=== PATIENT | female | born 1940 | race Caucasian/White ===

== ENCOUNTER 2016-11-27 09:06 | Inpatient (IN) | payer MEDICARE, OTHER ==
[~2016-11-27] VITALS: Ht 152.4 cm; Wt 78.9 kg
[2016-11-27] VITALS (667 sets, daily range): BP systolic 110–115; BP diastolic 53–87; PULSE 94–123; TEMP 97.8–98.7; O2SAT 82–100
[~2016-11-27 09:06] MED LIST: ALBUTEROL0.09 MG/A1 IH; ALPHAG-P-0.1-10 OS; ALPHAGAN OP; ASPIR-LOW81 MG PO; ASPIRIN 81M81 MG/TA2 PO; ATROVENT INHALE14 GM IH; AZMACORT IH; CARTIA XT120 MG PO; CITRUS CALCIUM1 TA1 PO; CLARITIN; CLARITIN 1010 MG/TAB PO; CLEOCIN HCL300 MG PO; FLONASE NASAL S16 GM NS; FLOVENT 220MCG7.9 GM IH; LISINOPRIL/HCTZ1 TAB PO; LOPRESSOR 225 MG/TAB PO; MULTIPLE VITAMI1 TA7 PO; MVI; OSCAL 500MG/VI500 MG PO; PRINZIDE 12.5 M1 TAB PO; PROTOPIC0.03% TP; PROVENTIL0.09 MG/A1 IH; THEO-DUR 3300 MG/TAB PO; THEODUR 300MG PO; TRAMADOL; TRUSOPT 5 ML5 ML OS; ULTRAM 50MG TAB50 MG PO; VICOPROFEN 7.51 TAB PO; XALATAN EYE DROPS OS; ZANTAC 150150 MG PO; ZANTAC 150MG T150 MG PO; [UNRECOGNIZED DRUG - OTHER]; [UNRECOGNIZED DRUG - OTHER] IH; [UNRECOGNIZED DRUG - OTHER] IH; [UNRECOGNIZED DRUG - OTHER] OS
[2016-11-27 09:36] LABS: BASO # 0.1 (0.0-0.2); BASO % 0.3 % (0.0-2.0); GRAN # 17.7 (1.4-6.5); GRAN % 86.7 % (42.2-75.2); HEMATOCRIT 42.7 % (37.0-47.0); HEMOGLOBIN 13.9 g/dl (12.5-16.0); LYMPH # 1.2 (1.2-3.4); LYMPH % 5.7 % (20.0-51.0); MEAN CELL VOLUME 92 fl (80.0-100.0); MEAN CORPUSCULAR HEMOGLOBIN 30 pg (27.0-31.0); MEAN CORPUSCULAR HGB CONC 33 g/dl (33.0-37.0); MEAN PLATELET VOLUME 10.4 fl (7.4-10.4); MONO # 1.4 (0.1-0.6); MONO % 6.9 % (1.7-9.3); PLATELET COUNT 268 K/mm3 (130-400); RED BLOOD COUNT 4.66 M/mm3 (4.10-5.30)
[2016-11-27 09:38] LABS: WHITE BLOOD COUNT 20.5 K/mm3 (4.8-10.8)
[2016-11-27 09:47] LABS: ADJUSTED CALCIUM 10.2 mg/dL (8.4-10.2); ALANINE AMINOTRANSFERASE 29 U/L (9-52); ALBUMIN 4.5 gm/dL (3.5-5.0); ALKALINE PHOSPHATASE 65 U/L (50-136); ANION GAP 15 mmol/L (7-16); BLOOD UREA NITROGEN 20 mg/dL (7-17); CALCIUM 10.6 mg/dL (8.4-10.2); CARBON DIOXIDE 27 mmol/L (22-30); CHLORIDE 101 mmol/L (98-107); CREATININE, serum 0.72 mg/dL (0.52-1.25); GLUCOSE 128 mg/dL (74-106); LIPASE 124 U/L (23-300); POTASSIUM 3.9 mmol/L (3.4-5.0); SODIUM 143 mmol/L (137-145); TOTAL PROTEIN 8.1 gm/dL (6.4-8.2)
[2016-11-27 09:51] LABS: INR 1.1 (0.8-3.0); PROTHROMBIN TIME 12.3 SECONDS (9.7-12.8)
[2016-11-27 09:54] LABS: PARTIAL THROMBOPLASTIN TIME 33.2 SECONDS (26.0-37.0)
[2016-11-27 09:59] LABS: B-TYPE NATRIURETIC PEPTIDE 487 pg/mL (0-125)
[2016-11-27 10:01] LABS: TROPONIN-I < 0.012 ng/mL (0.000-0.034)
[2016-11-27 10:59] LABS: PH 7 (5-8); SQUAMOUS EPITHELIAL 0-2 /hpf; URINE APPEARANCE Clear; URINE BACTERIA Rare /hpf; URINE BILIRUBIN Negative (NEGATIVE); URINE BLOOD 2+ (NEGATIVE); URINE COLOR Straw; URINE GLUCOSE Negative (NEGATIVE); URINE KETONE Negative (NEGATIVE); URINE UROBILINOGEN Negative (NEGATIVE); URINE WBC 0-2 /hpf
[2016-11-27] MEDS ORDERED: CARTIA XT120 MG PO (11:05)
[2016-11-27] MEDS ORDERED: TUMS500 MG PO (11:09)
[2016-11-27] MEDS ORDERED: ONE DAILY1 TA1 PO (11:18)
[2016-11-27] MEDS ORDERED: TRUSOPT OCUMETE10 ML OS (12:30)
[2016-11-27 13:57] LABS: BASO % 0.2 % (0.0-2.0); EOS % 0.1 % (0-4.0); GRAN # 13.3 (1.4-6.5); GRAN % 80.1 % (42.2-75.2); HEMATOCRIT 39.5 % (37.0-47.0); HEMOGLOBIN 12.7 g/dl (12.5-16.0); LYMPH # 1.8 (1.2-3.4); LYMPH % 11.1 % (20.0-51.0); MEAN CELL VOLUME 92 fl (80.0-100.0); MEAN CORPUSCULAR HEMOGLOBIN 30 pg (27.0-31.0); MEAN CORPUSCULAR HGB CONC 32 g/dl (33.0-37.0); MEAN PLATELET VOLUME 10.6 fl (7.4-10.4); MONO # 1.3 (0.1-0.6); MONO % 8.1 % (1.7-9.3); PLATELET COUNT 266 K/mm3 (130-400); REDCELL DISTRIBUTION WIDTH-CV 14.2 % (11.5-14.5); WHITE BLOOD COUNT 16.6 K/mm3 (4.8-10.8)
[2016-11-28] VITALS (759 sets, daily range): BP systolic 96–134; BP diastolic 53–92; PULSE 74–132; TEMP 97.8–98.7; O2SAT 82–100
[2016-11-29 02:29] VITALS: BP 120/66; PULSE 117; TEMP 98.2
[2016-11-29 07:46] VITALS: BP 113/68; PULSE 112
[2016-11-29 12:11] VITALS: BP 124/87; PULSE 100
[2016-11-29 15:56] VITALS: BP 107/55; PULSE 89
[2016-11-29 19:38] VITALS: BP 118/42; PULSE 64; TEMP 98.2
[2016-11-29 23:34] VITALS: BP 112/52; PULSE 66; TEMP 98.2
[2016-11-30 04:20] VITALS: BP 109/59; PULSE 74; TEMP 98.9
[2016-11-30 08:24] VITALS: BP 122/54; PULSE 80; TEMP 98.2
[2016-11-30 11:40] VITALS: BP 111/49; PULSE 59; TEMP 96.9
[2016-11-30 11:41] LABS: BASO % 0.3 % (0.0-2.0); EOS # 0.3 (0.0-0.7); EOS % 3.2 % (0-4.0); GRAN # 6.1 (1.4-6.5); GRAN % 69.2 % (42.2-75.2); LYMPH # 1.5 (1.2-3.4); LYMPH % 17.1 % (20.0-51.0); MEAN CELL VOLUME 95 fl (80.0-100.0); MEAN CORPUSCULAR HGB CONC 31 g/dl (33.0-37.0); MEAN PLATELET VOLUME 10.5 fl (7.4-10.4); MONO # 0.9 (0.1-0.6); MONO % 9.9 % (1.7-9.3); PLATELET COUNT 225 K/mm3 (130-400); REDCELL DISTRIBUTION WIDTH-CV 14.6 % (11.5-14.5); WHITE BLOOD COUNT 8.8 K/mm3 (4.8-10.8)
[2016-11-30 11:42] LABS: HEMATOCRIT 34.1 % (37.0-47.0); HEMOGLOBIN 10.7 g/dl (12.5-16.0); MEAN CORPUSCULAR HEMOGLOBIN 30 pg (27.0-31.0)
[2016-11-30] MEDS ORDERED: BETAPACE 80MG80 MG PO (13:01)
[2016-11-30] MEDS ORDERED: ELIQUIS 5MG PO (13:01)
== END 2016-11-30 13:39 | disposition home or self-care (01) | DRG 310 ==
LOC: COL.ER 09:06 → IMCU 10:28 → MEDICAL 11-28 16:50
PROVIDERS: Emergency Medicine
PROC: 5A2204Z Restoration of Cardiac Rhythm, Single (ICD-10-PCS; principal; 2016-11-28)
DX: I48.0 Paroxysmal atrial fibrillation (principal); I10 Essential (primary) hypertension; J44.9 Chronic obstructive pulmonary disease, unspecified
CPT/HCPCS: 99232-AI; 99238; A9502; J1650; J2250; J2704; J3010; J7030; J7050

== ENCOUNTER → 2017-06-02 | Outpatient (CLI) | payer MEDICARE, OTHER ==
[~2017-06-02] MED LIST changes: +BETAPACE 80MG80 MG PO; +ELIQUIS 5MG PO; +ONE DAILY1 TA1 PO; +TRUSOPT OCUMETE10 ML OS; +TUMS500 MG PO
== END ==
LOC: MC.RAD 08:20
DX: Z12.31 Encounter for screening mammogram for malignant neoplasm of breast (principal)

== ENCOUNTER 2017-06-15 07:10 | Inpatient (IN) | payer MEDICARE, OTHER ==
[2009-03-21 16:17] VITALS: BP 169/86
[2017-06-15] VITALS (10 sets, daily range): BP systolic 110–164; BP diastolic 41–53; PULSE 45–70; TEMP 97.6–97.8
[2017-06-15] MEDS ORDERED: CITRACAL + D CA1 TAB PO (08:28)
[2017-06-15] MEDS ORDERED: FLONASEALLERGY NS (08:36)
[2017-06-15] MEDS ORDERED: BETOPTIC S OU (08:37)
[2017-06-15] MEDS ORDERED: XOPENEX HF0.045 MG/A IH (08:39)
[2017-06-16 02:00] VITALS: BP 118/45; PULSE 68; TEMP 98.2
[2017-06-16 05:52] VITALS: BP 126/38; PULSE 73; TEMP 97.3
[2017-06-16] MEDS ORDERED: COLACE 100100 MG/CAP PO (08:35)
== END 2017-06-16 10:30 | disposition home or self-care (01) | DRG 747 ==
LOC: SDCO 07:10 → SURG 11:17
PROVIDERS: Obstetrics & Gynecology
PROC: 0WBN0ZZ Excision of Female Perineum, Open Approach (ICD-10-PCS; 2017-06-15)
PROC: 0ULG7ZZ Occlusion of Vagina, Via Natural or Artificial Opening (ICD-10-PCS; principal; 2017-06-15 09:00)
DX: N81.3 Complete uterovaginal prolapse (principal); I10 Essential (primary) hypertension; J44.9 Chronic obstructive pulmonary disease, unspecified; I48.91 Unspecified atrial fibrillation
CPT/HCPCS: A9284; J2405; J2704; J3010; J7120

== ENCOUNTER → 2018-06-21 | Outpatient (CLI) | payer MEDICARE, OTHER ==
[~2018-06-21] MED LIST changes: +BETOPTIC S OU; +CITRACAL + D CA1 TAB PO; +COLACE 100100 MG/CAP PO; +FLONASEALLERGY NS; +XOPENEX HF0.045 MG/A IH
== END ==
LOC: MC.RAD 08:00
DX: Z12.31 Encounter for screening mammogram for malignant neoplasm of breast (principal)

== ENCOUNTER → 2019-08-09 | Outpatient (CLI) | payer MEDICARE, OTHER | LOC: MC.RAD 15:20 | DX: Z12.31 Encounter for screening mammogram for malignant neoplasm of breast (principal) ==

== ENCOUNTER 2019-09-21 13:08 | Observation (INO) | payer MEDICARE, OTHER ==
[~2019-09-21] VITALS: Ht 162.6 cm; Wt 78.6 kg
--- NOTE | 2019-09-21 13:30 | NUR ---
Pt arrived to room 306 at this time. She is A/O x4. Her breathing is even and unlabored on RA. Pt denies SOB at rest, reports worsening with exertion. No pain at this time. Pt assisted to the bed with SBA. IV started to RFA. POC discussed with patient and her daughter. No needs at this time. Call light within reach. Will continue to monitor.
[2019-09-21] MEDS ORDERED: ZYLOPRIM 300MG300 MG PO (13:33)
[2019-09-21 15:23] VITALS: BP 98/46; PULSE 76; TEMP 98.7
[2019-09-21 15:23] LABS: HEMATOCRIT 41.8 % (37.0-47.0); HEMOGLOBIN 13.3 g/dl (12.5-16.0); MEAN CELL VOLUME 94 fl (80.0-100.0); MEAN CORPUSCULAR HEMOGLOBIN 30 pg (27.0-31.0); MEAN CORPUSCULAR HGB CONC 32 g/dl (33.0-37.0); MEAN PLATELET VOLUME 10.7 fl (7.4-10.4); PLATELET COUNT 245 K/mm3 (130-400); RED BLOOD COUNT 4.44 M/mm3 (4.10-5.30); REDCELL DISTRIBUTION WIDTH-CV 14.1 % (11.5-14.5)
[2019-09-21 15:26] VITALS: BP 98/46; PULSE 76; TEMP 98.7
[2019-09-21 15:29] LABS: ALANINE AMINOTRANSFERASE 19 U/L (9-52); ALBUMIN 4.3 gm/dL (3.5-5.0); ALKALINE PHOSPHATASE 57 U/L (50-136); ANION GAP 10 mmol/L (7-16); AST,SGOT 22 U/L (15-37); BILIRUBIN,TOTAL 0.8 mg/dL (0.0-1.0); BLOOD UREA NITROGEN 17 mg/dL (7-17); CALCIUM 9.4 mg/dL (8.4-10.2); CARBON DIOXIDE 29 mmol/L (22-30); CHLORIDE 98 mmol/L (98-107); CREATININE, serum 0.76 (0.52-1.25); GLUCOSE 108 mg/dL (74-106); POTASSIUM 3.5 mmol/L (3.4-5.0); SODIUM 137 mmol/L (137-145); TOTAL PROTEIN 7.6 gm/dL (6.4-8.2)
[2019-09-21 15:41] LABS: BAND 2 % (0-10); LYMPHOCYTE 12 % (20.0-51.0); NEUTROPHILS 80 % (42.0-75.2); PLATELET ESTIMATE NORMAL (NORMAL); STOMATOCYTE 3+
[2019-09-21 15:46] LABS: TROPONIN-I < 0.012 ng/mL (0.000-0.035)
[2019-09-21 16:20] LABS: COLLECTION METHOD CLEAN CATCH
[2019-09-21 16:28] LABS: MUCOUS Present /lpf; PH 6 (5-8); SQUAMOUS EPITHELIAL 0-2 /hpf; URINE APPEARANCE Clear; URINE BACTERIA Rare /hpf; URINE BILIRUBIN Negative (NEGATIVE); URINE BLOOD 3+ (NEGATIVE); URINE COLOR Yellow; URINE GLUCOSE Negative (NEGATIVE); URINE KETONE Negative (NEGATIVE); URINE LEUKOCYTE ESTERASE Negative (NEGATIVE); URINE NITRATE Negative (NEGATIVE); URINE PROTEIN(semi-quant) Negative (NEGATIVE); URINE UROBILINOGEN Negative (NEGATIVE)
--- NOTE | 2019-09-21 18:36 | NUR ---
Pt had uneventful afternoon, rested well in bed with daughter at bedside. No pain reported. Breathing remains even and unlabored on RA. Pt and daughter updated with POC. No needs at this time.
[2019-09-21 20:00] VITALS: BP 91/38; PULSE 64; TEMP 99.4
--- NOTE | 2019-09-21 20:00 | NUR ---
Recieved report from CLAUDIA Finn. Assessment complete. Alert and oriented. Denies any nausea, dizziness, SOB. C/O chest pressure, rate2/10, tolerable.IVF to RF intact, dressing cdi. Assisted to BR. Meds administered as ordered. Needs met. Call light within reach.
[2019-09-22] VITALS: BP 109/48; PULSE 72; TEMP 98.4
[2019-09-22 03:49] VITALS: BP 101/54; PULSE 77; TEMP 99.1
--- NOTE | 2019-09-22 05:28 | NUR ---
Pt made no complaints during this shift. Meds administered as ordered. Assisted pt to BR. Call light within reach.
[2019-09-22 06:48] LABS: BASO % 0.4 % (0.0-2.0); EOS # 0.1 (0.0-0.7); EOS % 0.6 % (0-4.0); GRAN # 6.2 (1.4-6.5); GRAN % 61.1 % (42.2-75.2); HEMATOCRIT 38.4 % (37.0-47.0); LYMPH # 2.4 (1.2-3.4); LYMPH % 23.4 % (20.0-51.0); MEAN CELL VOLUME 95 fl (80.0-100.0); MEAN CORPUSCULAR HEMOGLOBIN 30 pg (27.0-31.0); MEAN CORPUSCULAR HGB CONC 31 g/dl (33.0-37.0); MEAN PLATELET VOLUME 10.8 fl (7.4-10.4); MONO # 1.4 (0.1-0.6); MONO % 14.1 % (1.7-9.3); PLATELET COUNT 231 K/mm3 (130-400); RED BLOOD COUNT 4.04 M/mm3 (4.10-5.30); REDCELL DISTRIBUTION WIDTH-CV 14.3 % (11.5-14.5)
--- NOTE | 2019-09-22 06:51 | NUR ---
Report given to CLAUDIA Finn.
[2019-09-22 07:04] LABS: ANION GAP 9 mmol/L (7-16); BLOOD UREA NITROGEN 17 mg/dL (7-17); CALCIUM 8.9 mg/dL (8.4-10.2); CARBON DIOXIDE 28 mmol/L (22-30); CHLORIDE 103 mmol/L (98-107); CREATININE, serum 0.78 (0.52-1.25); GLUCOSE 89 mg/dL (74-106); POTASSIUM 3.2 mmol/L (3.4-5.0); SODIUM 140 mmol/L (137-145)
[2019-09-22 07:14] LABS: TROPONIN-I < 0.012 ng/mL (0.000-0.035)
[2019-09-22 07:58] VITALS: BP 107/58; PULSE 53; TEMP 99.2
--- NOTE | 2019-09-22 08:39 | NUR ---
Pt assessment complete. Pt is sitting up in bed upon entry, she is A/O x4. Her breathing is even and unlabored at rest on RA, becomes tachypneic and SOB on exertion. Pt reports the tightness in chest is improved from yesterday. No other pain to report. No N/V. Up to restroom with SBA. Daughter at bedside at this time, no further needs. Call light within reach.
[2019-09-22] MEDS ORDERED: DOXYCYCLINE 10100 MG PO (09:38)
--- NOTE | 2019-09-22 09:50 | NUR ---
GERRI met with the patient and her daughter, Antoinette (ph#[phone]), to discuss discharge plan. The patient lives in [place] with her daughter (Antoinette), son-in-law, and grandson. She reports independence with ADLs and has a cane and walker available, if needed. The patient's PCP is Dr. J Luis Perkins and she receives her medications at [facility]. She reports no difficulties obtaining her meds. The patient does not have advanced directives in EMR, but her and the patient's daughter report that she does have them completed and at home. Antoinette states that her sister's: Radha Rico (ph#[phone]) and Christin Caldwell are the patient's DPOA-HC. The patient plans to return home with her daughter upon discharge. No additional needs at this time.
[2019-09-22 11:15] VITALS: BP 108/69; PULSE 68; TEMP 97.7
--- NOTE | 2019-09-22 11:49 | NUR ---
First visit from the pelletizer tender. No needs right now.
--- NOTE | 2019-09-22 11:54 | NUR ---
Discharge instructions and paperwork reviewed with patient and her daughter all questions answered at this time. IV to RFA dc'd catheter tip intact. No Walked out at this time.
== END 2019-09-22 12:08 | disposition home or self-care (01) ==
LOC: MEDICAL 13:08
PROVIDERS: Physician Assistant; ADMIT Hospitalist
DX: R07.9 Chest pain, unspecified (principal); D72.829 Elevated white blood cell count, unspecified; J44.9 Chronic obstructive pulmonary disease, unspecified; I10 Essential (primary) hypertension; E87.6 Hypokalemia; R53.1 Weakness; K21.9 Gastro-esophageal reflux disease without esophagitis; J30.89 Other allergic rhinitis; I48.0 Paroxysmal atrial fibrillation; J42 Unspecified chronic bronchitis; E66.9 Obesity, unspecified; Z68.35 Body mass index [BMI] 35.0-35.9, adult; Z91.048 Other nonmedicinal substance allergy status; Z88.0 Allergy status to penicillin; Z88.2 Allergy status to sulfonamides; Z88.1 Allergy status to other antibiotic agents; Z88.6 Allergy status to analgesic agent; Z88.5 Allergy status to narcotic agent; Z88.3 Allergy status to other anti-infective agents; Z91.040 Latex allergy status; Z91.012 Allergy to eggs; Z88.8 Allergy status to other drugs, medicaments and biological substances; Z79.01 Long term (current) use of anticoagulants; Z77.22 Contact with and (suspected) exposure to environmental tobacco smoke (acute) (chronic); Z79.51 Long term (current) use of inhaled steroids
CPT/HCPCS: G0378; J7030

== ENCOUNTER 2020-01-16 20:59 | Inpatient (IN) | payer MEDICARE, OTHER ==
[~2020-01-16] VITALS: Ht 152.4 cm; Wt 82.7 kg
[~2020-01-16 20:59] MED LIST changes: +DOXYCYCLINE 10100 MG PO; +ZYLOPRIM 300MG300 MG PO
[2020-01-16 22:10] LABS: BASO # 0.1 (0.0-0.2); BASO % 0.6 % (0.0-2.0); EOS # 0.4 (0.0-0.7); EOS % 3.2 % (0-4.0); GRAN # 6.8 (1.4-6.5); GRAN % 62.1 % (42.2-75.2); HEMATOCRIT 40.5 % (37.0-47.0); HEMOGLOBIN 12.7 g/dl (12.5-16.0); LYMPH # 2.6 (1.2-3.4); LYMPH % 23.6 % (20.0-51.0); MEAN CELL VOLUME 95 fl (80.0-100.0); MEAN CORPUSCULAR HEMOGLOBIN 30 pg (27.0-31.0); MEAN CORPUSCULAR HGB CONC 31 g/dl (33.0-37.0); MEAN PLATELET VOLUME 10.2 fl (7.4-10.4); MONO # 1.1 (0.1-0.6); MONO % 10.1 % (1.7-9.3); PLATELET COUNT 235 K/mm3 (130-400); RED BLOOD COUNT 4.25 M/mm3 (4.10-5.30); REDCELL DISTRIBUTION WIDTH-CV 14.1 % (11.5-14.5)
[2020-01-16 22:21] LABS: ALANINE AMINOTRANSFERASE 16 U/L (4-34); ALBUMIN 4.2 gm/dL (3.5-5.0); ALKALINE PHOSPHATASE 60 U/L (50-136); ANION GAP 10 mmol/L (7-16); AST,SGOT 24 U/L (15-37); BILIRUBIN,TOTAL 0.4 mg/dL (0.0-1.0); BLOOD UREA NITROGEN 22 mg/dL (7-17); CALCIUM 9.6 mg/dL (8.4-10.2); CARBON DIOXIDE 29 mmol/L (22-30); CHLORIDE 101 mmol/L (98-107); CREATININE, serum 0.54 (0.52-1.25); GLUCOSE 125 mg/dL (74-106); POTASSIUM 3.7 mmol/L (3.4-5.0); SODIUM 139 mmol/L (137-145); TOTAL PROTEIN 7.5 gm/dL (6.4-8.2)
[2020-01-16 23:46] LABS: TROPONIN-I < 0.012 ng/mL (0.000-0.035)
[2020-01-17] VITALS (473 sets, daily range): BP systolic 97–119; BP diastolic 53–69; PULSE 71–140; TEMP 97.6–98.1; O2SAT 89–100
--- NOTE | 2020-01-17 00:07 | NUR ---
RECEIVED REPORT FROM CLAUDIA BENEDICT IN ER. AWAITING ARRIVAL OF PT TO ICU 5.
--- NOTE | 2020-01-17 01:04 | NUR ---
PT ARRIVES TO ICU 5 VIA STRETCHER ON RA. PT ABLE TO AMBULATE TO ICU BED BY SELF, STEADY GAIT NOTED. PT PLACED ON BEDSIDE CONTINUOUS MONITOR. CALL LIGHT SYSTEM EDUCATION GIVEN, VERBALIZED UNDERSTANDING. SEE GTT TITRATION FLOWSHEET.
--- NOTE | 2020-01-17 01:45 | NUR ---
[facility] NOTIFIED NURSE PT IS BACK IN SR IN THE 70s. SAV MCCOY AT BEDSIDE FOR ASSESSMENT AND NOTIFIED PT CONVERTED TO SR. PHYSICIAN STATES OK TO LET PT EAT LONG SHE STAYS IN NORMAL SINUS [place]TH[place] AND IS OK TO CALL ICE CUTTER CONSULT IN AM. PT ABLE TO TELL PHYSICIAN ALL BACK STORY OF WHY SHE CAME TO THE HOSPITAL. PHYSICIAN STATES TO LEAVE CARDIZEM GTT ON AT THIS TIME LONG BP REMAINS STABLE. POC DISCUSSED WITH PT, VERBALIZED UNDERSTANDING.
[2020-01-17] MEDS ORDERED: ATROVENT INHALE14 GM IH (01:59)
[2020-01-17] MEDS ORDERED: PRINZIDE 12.5 M1 TAB PO (02:11)
[2020-01-17 03:44] LABS: COLLECTION METHOD CLEAN CATCH
[2020-01-17 04:00] LABS: MUCOUS Present /lpf; PH 6 (5-8); SQUAMOUS EPITHELIAL 0-2 /hpf; URINE APPEARANCE Clear; URINE BACTERIA None Seen /hpf; URINE BILIRUBIN Negative (NEGATIVE); URINE BLOOD 2+ (NEGATIVE); URINE COLOR Straw; URINE GLUCOSE Negative (NEGATIVE); URINE KETONE Negative (NEGATIVE); URINE LEUKOCYTE ESTERASE Negative (NEGATIVE); URINE NITRATE Negative (NEGATIVE); URINE PROTEIN(semi-quant) Negative (NEGATIVE); URINE UROBILINOGEN Negative (NEGATIVE)
[2020-01-17 05:50] LABS: BASO # 0.1 (0.0-0.2); BASO % 0.5 % (0.0-2.0); EOS # 0.2 (0.0-0.7); EOS % 2.1 % (0-4.0); GRAN # 7.6 (1.4-6.5); GRAN % 70.6 % (42.2-75.2); HEMATOCRIT 38.5 % (37.0-47.0); LYMPH # 1.7 (1.2-3.4); LYMPH % 16.1 % (20.0-51.0); MEAN CELL VOLUME 96 fl (80.0-100.0); MEAN CORPUSCULAR HEMOGLOBIN 30 pg (27.0-31.0); MEAN CORPUSCULAR HGB CONC 31 g/dl (33.0-37.0); MEAN PLATELET VOLUME 10.4 fl (7.4-10.4); MONO # 1.1 (0.1-0.6); MONO % 10.3 % (1.7-9.3); PLATELET COUNT 243 K/mm3 (130-400); RED BLOOD COUNT 4.02 M/mm3 (4.10-5.30)
[2020-01-17 06:00] LABS: ANION GAP 5 mmol/L (7-16); BLOOD UREA NITROGEN 17 mg/dL (7-17); CALCIUM 9.2 mg/dL (8.4-10.2); CARBON DIOXIDE 32 mmol/L (22-30); CHLORIDE 103 mmol/L (98-107); CREATININE, serum 0.55 (0.52-1.25); GLUCOSE 103 mg/dL (74-106); SODIUM 139 mmol/L (137-145)
[2020-01-17 06:12] LABS: TROPONIN-I 6 HR POST INITIAL < 0.012 ng/mL (0.000-0.034)
--- NOTE | 2020-01-17 07:15 | NUR ---
Report received from Amy TAYLOR and care resumed.
--- NOTE | 2020-01-17 08:47 | NUR ---
Dr Marshall in to see pt at this time.
--- NOTE | 2020-01-17 08:56 | NUR ---
Dr Mendez in to see pt at this time.
--- NOTE | 2020-01-17 09:55 | NUR ---
NADEEM WIGGINS DC'D AT THIS TIME PER VERBAL ORDER DR MARTINEZ.
--- NOTE | 2020-01-17 10:11 | NUR ---
SW met with the patient to discuss discharge plan. The patient lives in [place] with her daughter, Antoinette Hess (ph#[phone]), son-in-law, and grandson. She reports independence with ADLs and does not have any DME. The patient's PCP is Dr. J Luis Perkins and she receives her medications at [facility]. She reports no difficulties obtaining her meds. The patient does not have advanced directives in EMR, but she states that she believes she may have them completed and at the [facility]. She states that she would have designated one or or two of her daughters. She has three daughters: Antoinette, Radha Rico (ph#[phone]), and Christin Caldwell. The patient plans to return home with her daughter upon discharge. No additional needs at this time.
[2020-01-17] MEDS ORDERED: BETAPACE 120MG120 MG PO (11:14)
== END 2020-01-17 13:00 | disposition home or self-care (01) | DRG 310 ==
LOC: COL.ER 20:59 → ICU 01-17 00:01
PROVIDERS: Emergency Medicine; Nurse Practitioner Family; ADMIT Internal Medicine
DX: I48.91 Unspecified atrial fibrillation (principal); K21.9 Gastro-esophageal reflux disease without esophagitis; I10 Essential (primary) hypertension; H40.9 Unspecified glaucoma; J44.9 Chronic obstructive pulmonary disease, unspecified; E87.6 Hypokalemia; E83.42 Hypomagnesemia
CPT/HCPCS: 99222-AI; J3475; J7030

== ENCOUNTER 2020-06-14 10:00 | Outpatient (RCR) | payer MEDICARE, OTHER ==
[~2020-06-14 10:00] MED LIST changes: +BETAPACE 120MG120 MG PO
== END 2020-06-28 09:49 | disposition home or self-care (01) ==
LOC: WSC 10:00
DX: M89.8X1 Other specified disorders of bone, shoulder (principal); M54.6 Pain in thoracic spine

== ENCOUNTER → 2020-08-09 | Outpatient (CLI) | payer MEDICARE, OTHER | LOC: MC.RAD 08:15 | DX: Z12.31 Encounter for screening mammogram for malignant neoplasm of breast (principal) ==

== ENCOUNTER → 2021-08-12 | Outpatient (CLI) | payer MEDICARE, OTHER | LOC: MC.RAD 08:15 | DX: Z12.31 Encounter for screening mammogram for malignant neoplasm of breast (principal) ==

== ENCOUNTER 2021-09-04 16:04 | Emergency (ER) | payer MEDICARE, OTHER ==
[~2021-09-04] VITALS: Ht 152.4 cm; Wt 81.8 kg
[2021-09-04 16:19] VITALS: TEMP 97.5
[2021-09-04 16:49] LABS: BASO # 0.1 K/mm3 (0.0-0.2); BASO % 0.5 % (0.0-2.0); EOS # 0.3 K/mm3 (0.0-0.7); EOS % 2.4 % (0.0-4.0); GRAN # 7.6 K/mm3 (1.4-6.5); GRAN % 68.2 % (42.2-75.2); HEMATOCRIT 41.7 % (37.0-47.0); HEMOGLOBIN 13.6 g/dl (12.5-16.0); LYMPH # 2.1 K/mm3 (1.2-3.4); MEAN CELL VOLUME 92 fl (80.0-100.0); MEAN CORPUSCULAR HEMOGLOBIN 30 pg (27-31); MEAN CORPUSCULAR HGB CONC 33 g/dl (33.0-37.0); MEAN PLATELET VOLUME 10.4 fl (7.4-10.4); MONO # 1.1 K/mm3 (0.1-0.6); MONO % 9.6 % (1.7-9.3); PLATELET COUNT 277 K/mm3 (130-400); RED BLOOD COUNT 4.54 M/mm3 (4.10-5.30); REDCELL DISTRIBUTION WIDTH-CV 14.2 % (11.5-14.5)
[2021-09-04 16:57] LABS: INR 1.5 (0.8-3.0); PROTHROMBIN TIME 16.5 SECONDS (9.7-12.8)
[2021-09-04 16:59] LABS: PARTIAL THROMBOPLASTIN TIME 34.6 SECONDS (26.0-37.0)
[2021-09-04 17:22] LABS: ALANINE AMINOTRANSFERASE 24 U/L (0-55); ALBUMIN 3.6 gm/dL (3.4-4.8); ALKALINE PHOSPHATASE 51 U/L (40-150); ANION GAP 13 mmol/L (7-16); AST,SGOT 31 U/L (5-34); BILIRUBIN,TOTAL 0.4 mg/dL (0.2-1.2); BLOOD UREA NITROGEN 28 mg/dL (10-20); CALCIUM 9.6 mg/dL (8.4-10.2); CARBON DIOXIDE 25 mmol/L (23-31); CHLORIDE 104 mmol/L (98-107); CREATININE, serum 0.98 mg/dL (0.57-1.11); GLUCOSE 106 mg/dL (70-99); POTASSIUM 3.7 mmol/L (3.5-4.5); SODIUM 142 mmol/L (136-145); TOTAL PROTEIN 7.3 gm/dL (6.2-8.1)
[2021-09-04 17:39] LABS: TROPONIN-I < 0.010 ng/mL (0.00-0.033)
[2021-09-04] MEDS ORDERED: CARTIA XT180 MG PO (20:13)
[2021-09-04 20:14] VITALS: BP 116/79; PULSE 79
[2021-09-05] MEDS ORDERED: CORDARONE200 MG/TAB PO ×2 (17:53)
== END 2021-09-04 20:25 | disposition home or self-care (01) ==
LOC: COL.ER 16:04
PROVIDERS: Family Medicine
DX: R00.0 Tachycardia, unspecified (principal); I10 Essential (primary) hypertension; I48.91 Unspecified atrial fibrillation; J44.9 Chronic obstructive pulmonary disease, unspecified; Z79.01 Long term (current) use of anticoagulants; Z79.899 Other long term (current) drug therapy

== ENCOUNTER 2021-09-07 11:31 | Inpatient (IN) | payer MEDICARE, OTHER ==
[2009-03-21 16:17] VITALS: BP 169/86
[2021-09-07] VITALS (220 sets, daily range): BP systolic 124–125; BP diastolic 71–76; PULSE 112–119; TEMP 98; O2SAT 74–100
[~2021-09-07] VITALS: Ht 152.4 cm; Wt 88.7 kg
[~2021-09-07 11:31] MED LIST changes: +CARTIA XT180 MG PO; +CORDARONE200 MG/TAB PO
[2021-09-07 12:15] LABS: BASO % 0.3 % (0.0-2.0); EOS # 0.1 K/mm3 (0.0-0.7); EOS % 1.1 % (0.0-4.0); GRAN # 8.2 K/mm3 (1.4-6.5); GRAN % 72.6 % (42.2-75.2); HEMATOCRIT 42.1 % (37.0-47.0); HEMOGLOBIN 13.6 g/dl (12.5-16.0); LYMPH # 1.9 K/mm3 (1.2-3.4); LYMPH % 16.8 % (20.0-51.0); MEAN CELL VOLUME 93 fl (80.0-100.0); MEAN CORPUSCULAR HEMOGLOBIN 30 pg (27-31); MEAN CORPUSCULAR HGB CONC 32 g/dl (33.0-37.0); MEAN PLATELET VOLUME 12.5 fl (7.4-10.4); MONO % 8.9 % (1.7-9.3); PLATELET COUNT 254 K/mm3 (130-400); RED BLOOD COUNT 4.53 M/mm3 (4.10-5.30); REDCELL DISTRIBUTION WIDTH-CV 14.6 % (11.5-14.5)
[2021-09-07 12:53] LABS: COLLECTION METHOD CLEAN CATCH
[2021-09-07 13:00] LABS: PH 6 (5-8); SQUAMOUS EPITHELIAL 0-2 /hpf (0-10); URINE APPEARANCE Clear (CLEAR/HAZY); URINE BACTERIA None Seen /hpf (NONE SEEN); URINE BILIRUBIN Negative (NEGATIVE); URINE BLOOD 1+ (NEGATIVE); URINE COLOR Straw (YELLOW); URINE GLUCOSE Negative (NEGATIVE); URINE KETONE Negative (NEGATIVE); URINE LEUKOCYTE ESTERASE Negative (NEGATIVE); URINE NITRATE Negative (NEGATIVE); URINE PROTEIN(semi-quant) Negative (NEGATIVE); URINE RBC 0-2 /hpf (0-2); URINE UROBILINOGEN Negative (NEGATIVE)
[2021-09-07 13:03] LABS: ALANINE AMINOTRANSFERASE 23 U/L (0-55); ALBUMIN 3.6 gm/dL (3.4-4.8); ALKALINE PHOSPHATASE 55 U/L (40-150); ANION GAP 12 mmol/L (7-16); AST,SGOT 22 U/L (5-34); BILIRUBIN,TOTAL 0.5 mg/dL (0.2-1.2); BLOOD UREA NITROGEN 18 mg/dL (10-20); CALCIUM 9.7 mg/dL (8.4-10.2); CARBON DIOXIDE 26 mmol/L (23-31); CHLORIDE 106 mmol/L (98-107); CREATININE, serum 0.77 mg/dL (0.57-1.11); GLUCOSE 111 mg/dL (70-99); POTASSIUM 3.4 mmol/L (3.5-4.5); SODIUM 144 mmol/L (136-145); TOTAL PROTEIN 7.1 gm/dL (6.2-8.1)
[2021-09-07 13:10] LABS: TROPONIN-I < 0.010 ng/mL (0.00-0.033)
[2021-09-07] MEDS ORDERED: HCTZ12.5TAB PO (14:07)
[2021-09-07] MEDS ORDERED: CLARITIN 1010 MG/TAB PO (14:07)
[2021-09-07] MEDS ORDERED: XOPENEX HF0.045 MG/A IH (14:08)
[2021-09-07] MEDS ORDERED: FLONASE SENSIM9.9 ML (14:09)
[2021-09-07] MEDS ORDERED: FLONASEALLERGY NS (14:09)
--- NOTE | 2021-09-07 15:17 | NUR ---
REPORT RECEIVED FROM CLAUDIA PINEDA. AWAITING ARRIVAL OF PT TO ICU 6.
--- NOTE | 2021-09-07 15:33 | NUR ---
PT ARRIVES TO ICU 6 VIA STRETCHER ON RA. PT TRANSFERS SELF TO ICU BED WITH STEADY GAIT. DENIES ANY CP/PRESSURE OR SHOB. PLACED ON BEDSIDE CONTINUOUS MONITOR. VSS. CALL LIGHT AND PHONE EDUCATION GIVEN, DEMONSTRATES UNDERSTANDING. SEE GTT FLOWSHEET. PT STATES SHE HAS BILATERAL HEARING AIDS IN CURRENTLY, DENTURES ARE AT HOME, GLASSES ARE ON PT. ALL OTHER CLOTHES BELONGINGS ARE IN THE CLOSET IN THE PT'S ROOM. PT STATES HER PURSE IS AT HOME.
[2021-09-08] VITALS (309 sets, daily range): BP systolic 101–129; BP diastolic 43–431; PULSE 60–601; TEMP 97.6–98.8; O2SAT 79–98
[2021-09-08 05:16] LABS: BASO # 0.1 K/mm3 (0.0-0.2); BASO % 0.4 % (0.0-2.0); EOS # 0.2 K/mm3 (0.0-0.7); GRAN # 7.3 K/mm3 (1.4-6.5); GRAN % 65.2 % (42.2-75.2); HEMATOCRIT 40.7 % (37.0-47.0); HEMOGLOBIN 13.4 g/dl (12.5-16.0); LYMPH # 2.4 K/mm3 (1.2-3.4); LYMPH % 21.7 % (20.0-51.0); MEAN CELL VOLUME 92 fl (80.0-100.0); MEAN CORPUSCULAR HEMOGLOBIN 30 pg (27-31); MEAN CORPUSCULAR HGB CONC 33 g/dl (33.0-37.0); MEAN PLATELET VOLUME 11.3 fl (7.4-10.4); MONO # 1.2 K/mm3 (0.1-0.6); MONO % 10.3 % (1.7-9.3); PLATELET COUNT 248 K/mm3 (130-400); RED BLOOD COUNT 4.43 M/mm3 (4.10-5.30); REDCELL DISTRIBUTION WIDTH-CV 14.6 % (11.5-14.5)
[2021-09-08 05:39] LABS: CALCIUM 9.7 mg/dL (8.4-10.2); CREATININE, serum 0.79 mg/dL (0.57-1.11); MAGNESIUM 1.9 mg/dL (1.6-2.6); POTASSIUM 4.4 mmol/L (3.5-4.5)
--- NOTE | 2021-09-08 07:00 | NUR ---
RECEIVED REPORT FROM CLAUDIA FAGAN. PT RESTING IN BED WATCHING TV ON RA. VSS. CALL LIGHT WITHIN REACH. SEE GTT FLOWSHEET.
--- NOTE | 2021-09-08 10:19 | NUR ---
REPORT GIVEN TO CLAUDIA MALDONADO. PT TRANSFERRED VIA ON RA AND ON TELEMETRY. ALL PERSONAL BELONGINGS SENT WITH PT.
--- NOTE | 2021-09-08 11:14 | NUR ---
Pt was moved from ICU. PT has been moved to 315
--- NOTE | 2021-09-08 18:34 | NUR ---
Patient admitted to room 315 from ICU. Report recieved from CLAUDIA Vivar. Upon initial assessment, patient had a Amio gtt running at ordered rate. Patient in Afib with a heart rate in the 1 teens. Normal S1 and S2 sounds present. Radial and pedal pulses +2 bilaterally. Lungs clear in all lobes. Bowel sounds present in all masters. Patient denies any pain, discomfort, SOA, or further needs at this time. Meds rec and allergies reviewed. IV sites located in Left AC and right forearm. No signs of complications. VSS. Patient A&O.
[2021-09-09 03:09] VITALS: BP 126/65; PULSE 120; TEMP 97.4
[2021-09-09 06:29] LABS: BASO # 0.1 K/mm3 (0.0-0.2); BASO % 0.4 % (0.0-2.0); EOS # 0.2 K/mm3 (0.0-0.7); GRAN # 6.7 K/mm3 (1.4-6.5); GRAN % 59.5 % (42.2-75.2); HEMATOCRIT 45.6 % (37.0-47.0); HEMOGLOBIN 14.5 g/dl (12.5-16.0); LYMPH % 26.9 % (20.0-51.0); MEAN CELL VOLUME 95 fl (80.0-100.0); MEAN CORPUSCULAR HEMOGLOBIN 30 pg (27-31); MEAN CORPUSCULAR HGB CONC 32 g/dl (33.0-37.0); MEAN PLATELET VOLUME 11.7 fl (7.4-10.4); MONO # 1.2 K/mm3 (0.1-0.6); MONO % 10.8 % (1.7-9.3); PLATELET COUNT 231 K/mm3 (130-400); RED BLOOD COUNT 4.82 M/mm3 (4.10-5.30); REDCELL DISTRIBUTION WIDTH-CV 14.8 % (11.5-14.5)
--- NOTE | 2021-09-09 06:35 | NUR ---
PT MADE NPO FOR THIS AM AFTER READING DR WALTER'S NOTE OF POSSIBLE DCCV TODAY. HR 120'S MOST OF THIS SHIFT, UP TO RESTROOM WITH SBA, NAS GTT @17.2ML/HR
[2021-09-09 06:43] LABS: CALCIUM 9.8 mg/dL (8.4-10.2); CREATININE, serum 0.82 mg/dL (0.57-1.11); POTASSIUM 4.7 mmol/L (3.5-4.5)
[2021-09-09 07:05] LABS: TSH w REFLEX 4.692 uIU/mL (0.350-4.940)
[2021-09-09 08:00] VITALS: BP 120/75; PULSE 93; TEMP 97.6
--- NOTE | 2021-09-09 11:28 | NUR ---
Furnace Keeper met with patient to discuss discharge planning. Patient's daughter, Antoinette (ph#[phone]) is at bedside but was on the phone during intake. Patient lives here in [place] with her daughter Antoinette and her family. Patient sees Dr. Raya for primary care and obtains medications from [facility] with no difficulties. Patient does not use any DME and reports independence with ADLS. Patient states she still drives. Patient does not have DPOA-HC at this time but states she may be interested in completing the form while here in the hospital. Patient wants to talk with her children about this first. Patient is and has seven children: Efra, Christin, Radha, Juliet, Justino, Nivia, and Antoinette. Patient reports she plans to return home upon discharge. PT/OT recommending home. Discharge Plan: Home
[2021-09-09 12:00] VITALS: BP 109/75; PULSE 128; TEMP 98.6
[2021-09-09 16:00] VITALS: BP 118/76; PULSE 133; TEMP 97.9
--- NOTE | 2021-09-09 18:00 | NUR ---
Scheduled medications given. Shift assessment performed. Patient continues to be in afib with heart rates in the 120's. Amio gtt running as ordered. Upon assessment of IV in right forearm, this RN noticed that IV was beginning to leak and infiltrate. Amio gtt stopped. IV DC'd, catheter intact. Mild redness noted, site tender to the touch. Site is soft but edematous. AMELIE Mcallister notified. This RN was instructed to elevate and place a cool compress on the site. Also instructed to monitor site for increased pain, swelling, and firmness. To contact care team if changes occur. Information passed onto oncoming shift. Patient denies any pain, discomfort, or further needs at this time. Call light in reach.
[2021-09-09 21:29] VITALS: BP 96/68; PULSE 125; TEMP 97.9
[2021-09-09 23:42] VITALS: BP 114/71; PULSE 121; TEMP 97.8
[2021-09-10 04:14] VITALS: BP 103/72; PULSE 115; TEMP 98
[2021-09-10 07:01] LABS: HEMATOCRIT 41.4 % (37.0-47.0); HEMOGLOBIN 12.9 g/dl (12.5-16.0); MEAN CELL VOLUME 97 fl (80.0-100.0); MEAN CORPUSCULAR HEMOGLOBIN 30 pg (27-31); MEAN CORPUSCULAR HGB CONC 31 g/dl (33.0-37.0); MEAN PLATELET VOLUME 10.9 fl (7.4-10.4); PLATELET COUNT 257 K/mm3 (130-400); RED BLOOD COUNT 4.28 M/mm3 (4.10-5.30); REDCELL DISTRIBUTION WIDTH-CV 14.9 % (11.5-14.5)
[2021-09-10 07:20] LABS: CREATININE, serum 0.85 mg/dL (0.57-1.11); POTASSIUM 3.9 mmol/L (3.5-4.5)
--- NOTE | 2021-09-10 08:10 | NUR ---
Shift assessment performed. Upon assessment, this RN noted that IV that had amiodarone running through it, had infiltrated. IV DC'd, catheter intact. Area slightly red, not hard, but edematous. Site painful to the touch. AMELIE Ozuna notified. This RN was instructed to elevate and place warm compress on site. To notify care team if changes are to occur. Patient also c/o nausea and one episode of vomitting. States that her stomach became upset after taking antibiotic on a empty stomach. Will continue to monitor. Patient continues to be in Afib with heart rate in the 130's. Denies any chest pain. Patient denies any pain, discomfort, SOA, or further needs at this time. Call light in reach.
[2021-09-10 08:11] VITALS: BP 126/73; PULSE 112; TEMP 97.6
[2021-09-10 08:17] LABS: BAND 3 % (0-10); EOSINOPHIL 2 % (0-4); LYMPHOCYTE 22 % (20.0-51.0); NEUTROPHILS 64 % (42.0-75.2); PLATELET ESTIMATE NORMAL (NORMAL)
[2021-09-10 12:30] VITALS: BP 127/61; PULSE 123; TEMP 97.4
--- NOTE | 2021-09-10 12:30 | NUR ---
Sulma Saunders notified regarding IV infiltration of Amio and Chief Of Service's plan to continue patient on gtt until tomorrow. Asked if a central line could be placed. Sulma to speak with with Dr. Singer
[2021-09-10 15:18] VITALS: BP 119/57; PULSE 120; TEMP 98.5
[2021-09-10 20:38] VITALS: BP 128/69; PULSE 60; TEMP 98.3
[2021-09-10 23:47] VITALS: BP 107/79; PULSE 95; TEMP 97.8
[2021-09-11] VITALS (9 sets, daily range): BP systolic 99–147; BP diastolic 45–84; PULSE 77–121; TEMP 97.5–97.9
[2021-09-11 07:42] LABS: BASO % 0.3 % (0.0-2.0); EOS # 0.3 K/mm3 (0.0-0.7); EOS % 2.3 % (0.0-4.0); GRAN # 8.6 K/mm3 (1.4-6.5); GRAN % 69.6 % (42.2-75.2); HEMATOCRIT 41.8 % (37.0-47.0); HEMOGLOBIN 13.2 g/dl (12.5-16.0); LYMPH # 2.1 K/mm3 (1.2-3.4); LYMPH % 16.7 % (20.0-51.0); MEAN CELL VOLUME 95 fl (80.0-100.0); MEAN CORPUSCULAR HEMOGLOBIN 30 pg (27-31); MEAN CORPUSCULAR HGB CONC 32 g/dl (33.0-37.0); MEAN PLATELET VOLUME 10.6 fl (7.4-10.4); MONO # 1.3 K/mm3 (0.1-0.6); MONO % 10.8 % (1.7-9.3); PLATELET COUNT 271 K/mm3 (130-400); RED BLOOD COUNT 4.38 M/mm3 (4.10-5.30); REDCELL DISTRIBUTION WIDTH-CV 14.9 % (11.5-14.5)
[2021-09-11 07:58] LABS: CALCIUM 9.5 mg/dL (8.4-10.2); CREATININE, serum 0.8 mg/dL (0.57-1.11); POTASSIUM 4.1 mmol/L (3.5-4.5)
--- NOTE | 2021-09-11 08:45 | NUR ---
Shift assessment complete. Pt assisted to restroom and back to bed SBA. Heart rhythm remains irregular and rate tachy. Pt denies chest pain, SOA, palpitations, or dizziness. Lungs CTA. A&Ox4. Continues to have loose stools. NPO awaiting cardioversion today. Denies further needs at this time. Continuing to monitor.
--- NOTE | 2021-09-11 12:26 | NUR ---
Pt off unit for cardioversion at this time.
--- NOTE | 2021-09-11 20:00 | NUR ---
Initial shift assessment done- denies pain, Tele on afib rate 97-108 at this time, did help up to bathroom, back to bed, no other requests, pleasant, alert/oriented.
[2021-09-12 00:50] VITALS: BP 97/52; PULSE 108; TEMP 97.8
[2021-09-12 04:39] VITALS: BP 110/48; PULSE 104; TEMP 98.3
--- NOTE | 2021-09-12 05:16 | NUR ---
Has been on Tele-in afib, rates between 85-110 throughout the night. Up to bathroom numerous times during the night-having watery diarrhea with just flecks-very small amounts.
[2021-09-12 06:09] LABS: BASO % 0.4 % (0.0-2.0); EOS # 0.2 K/mm3 (0.0-0.7); EOS % 1.7 % (0.0-4.0); GRAN # 7.1 K/mm3 (1.4-6.5); GRAN % 67.8 % (42.2-75.2); HEMATOCRIT 39.2 % (37.0-47.0); HEMOGLOBIN 12.4 g/dl (12.5-16.0); LYMPH % 19.1 % (20.0-51.0); MEAN CELL VOLUME 94 fl (80.0-100.0); MEAN CORPUSCULAR HEMOGLOBIN 30 pg (27-31); MEAN CORPUSCULAR HGB CONC 32 g/dl (33.0-37.0); MEAN PLATELET VOLUME 10.2 fl (7.4-10.4); MONO # 1.1 K/mm3 (0.1-0.6); MONO % 10.7 % (1.7-9.3); PLATELET COUNT 270 K/mm3 (130-400); RED BLOOD COUNT 4.17 M/mm3 (4.10-5.30); REDCELL DISTRIBUTION WIDTH-CV 14.6 % (11.5-14.5)
[2021-09-12 06:37] LABS: CALCIUM 9.4 mg/dL (8.4-10.2); CREATININE, serum 0.79 mg/dL (0.57-1.11); POTASSIUM 3.7 mmol/L (3.5-4.5)
[2021-09-12 08:00] VITALS: BP 121/50; PULSE 109; TEMP 97.9
[2021-09-12 10:31] VITALS: BP 108/62; PULSE 74
[2021-09-12 12:17] VITALS: BP 125/67; PULSE 101; TEMP 98.7
[2021-09-12 13:45] VITALS: BP 154/62; PULSE 113
[2021-09-12] MEDS ORDERED: MONODOX100 PO (14:13)
[2021-09-12] MEDS ORDERED: PACERONE400 MG PO (14:16)
[2021-09-12] MEDS ORDERED: LANOXIN 0.25M0.25 MG PO (14:16)
[2021-09-12] MEDS ORDERED: TOPROL XL 50MG50 MG PO (14:17)
[2021-09-12] MEDS ORDERED: HYDROCORTISONE30 G3 TP (14:18)
[2021-09-12] MEDS ORDERED: PROBIOTIC ACID1 EAC3 PO (14:19)
[2021-09-12] MEDS ORDERED: MAG-OX 400400 MG/TAB PO (14:20)
--- NOTE | 2021-09-12 15:28 | NUR ---
The patient is to discharge back home with her daughter and family today, 09/12. GERRI met with the patient and presented and read the IM form outloud to the patient. The patient verbalized understanding and signed the form. SW provided her with a copy. No additional needs at this time.
--- NOTE | 2021-09-12 15:46 | NUR ---
Patient discharging home. All discharge education discussed w/ patient, and verbalized understanding. IV discontinued by this RN, as was telemetry.
== END 2021-09-12 16:00 | disposition home or self-care (01) | DRG 310 ==
LOC: COL.ER 11:31 → ICU 14:45 → MEDICAL 09-08 12:24
PROVIDERS: Emergency Medicine; Internal Medicine; Physician Assistant; ADMIT Student in an Organized Health Care Education/Training Program
PROC: 5A2204Z Restoration of Cardiac Rhythm, Single (ICD-10-PCS; principal; 2021-09-07)
DX: I48.19 Other persistent atrial fibrillation (principal); I48.0 Paroxysmal atrial fibrillation; F41.9 Anxiety disorder, unspecified; I27.20 Pulmonary hypertension, unspecified; J44.9 Chronic obstructive pulmonary disease, unspecified; I10 Essential (primary) hypertension; K21.9 Gastro-esophageal reflux disease without esophagitis; H40.9 Unspecified glaucoma; E87.6 Hypokalemia; D72.829 Elevated white blood cell count, unspecified; J32.9 Chronic sinusitis, unspecified; Z79.01 Long term (current) use of anticoagulants; Z88.1 Allergy status to other antibiotic agents; Z88.0 Allergy status to penicillin; Z88.2 Allergy status to sulfonamides; Z23 Encounter for immunization; Z79.899 Other long term (current) drug therapy
CPT/HCPCS: 99223-AI; 99232-AI; 99233-AI; 99239; J0282; J1160; J2250; J2405; J2704; J3475; J7030; J7060; J7120

== ENCOUNTER 2021-09-25 15:41 | Emergency (ER) | payer MEDICARE, OTHER ==
[~2021-09-25] VITALS: Ht 149.9 cm; Wt 86.4 kg
[~2021-09-25 15:41] MED LIST changes: +FLONASE SENSIM9.9 ML; +HCTZ12.5TAB PO; +HYDROCORTISONE30 G3 TP; +LANOXIN 0.25M0.25 MG PO; +MAG-OX 400400 MG/TAB PO; +MONODOX100 PO; +PACERONE400 MG PO; +PROBIOTIC ACID1 EAC3 PO; +TOPROL XL 50MG50 MG PO
[2021-09-25 16:03] VITALS: TEMP 97
[2021-09-25 16:26] LABS: BASO # 0.1 K/mm3 (0.0-0.2); BASO % 0.7 % (0.0-2.0); EOS # 0.1 K/mm3 (0.0-0.7); EOS % 1.1 % (0.0-4.0); GRAN # 7.6 K/mm3 (1.4-6.5); GRAN % 71.7 % (42.2-75.2); HEMATOCRIT 42.3 % (37.0-47.0); HEMOGLOBIN 13.1 g/dl (12.5-16.0); LYMPH # 1.7 K/mm3 (1.2-3.4); LYMPH % 16.3 % (20.0-51.0); MEAN CELL VOLUME 98 fl (80.0-100.0); MEAN CORPUSCULAR HEMOGLOBIN 30 pg (27-31); MEAN CORPUSCULAR HGB CONC 31 g/dl (33.0-37.0); MEAN PLATELET VOLUME 10.3 fl (7.4-10.4); MONO # 1.1 K/mm3 (0.1-0.6); MONO % 9.9 % (1.7-9.3); PLATELET COUNT 309 K/mm3 (130-400); RED BLOOD COUNT 4.33 M/mm3 (4.10-5.30)
[2021-09-25 16:40] LABS: ALANINE AMINOTRANSFERASE 56 U/L (0-55); ALBUMIN 3.5 gm/dL (3.4-4.8); ALKALINE PHOSPHATASE 70 U/L (40-150); ANION GAP 14 mmol/L (7-16); AST,SGOT 66 U/L (5-34); BILIRUBIN,TOTAL 0.5 mg/dL (0.2-1.2); BLOOD UREA NITROGEN 13 mg/dL (10-20); CALCIUM 8.8 mg/dL (8.4-10.2); CARBON DIOXIDE 24 mmol/L (23-31); CHLORIDE 106 mmol/L (98-107); CREATININE, serum 1.13 mg/dL (0.57-1.11); GLUCOSE 120 mg/dL (70-99); POTASSIUM 3.8 mmol/L (3.5-4.5); SODIUM 144 mmol/L (136-145); TOTAL PROTEIN 7.3 gm/dL (6.2-8.1)
[2021-09-25 17:00] LABS: TROPONIN-I < 0.010 ng/mL (0.00-0.033); TSH w REFLEX 4.692 uIU/mL (0.350-4.940)
[2021-09-25] MEDS ORDERED: ZOFRAN ODT4 MG PO (18:52)
[2021-09-25 18:56] VITALS: BP 147/79; PULSE 76
== END 2021-09-25 19:05 | disposition home or self-care (01) ==
LOC: COL.ER 15:41
PROVIDERS: Emergency Medicine
DX: I48.0 Paroxysmal atrial fibrillation (principal); R11.2 Nausea with vomiting, unspecified; I10 Essential (primary) hypertension; J44.9 Chronic obstructive pulmonary disease, unspecified; Z91.040 Latex allergy status; Z20.822 Contact with and (suspected) exposure to COVID-19; Z79.01 Long term (current) use of anticoagulants; Z79.899 Other long term (current) drug therapy
CPT/HCPCS: J2405

== ENCOUNTER 2021-09-27 23:04 | Inpatient (IN) | payer MEDICARE, OTHER ==
[~2021-09-27] VITALS: Ht 147.3 cm; Wt 89.4 kg
[~2021-09-27 23:04] MED LIST changes: +ZOFRAN ODT4 MG PO
[2021-09-27 23:58] LABS: BASO % 0.2 % (0.0-2.0); EOS % 0.1 % (0.0-4.0); GRAN # 15.2 K/mm3 (1.4-6.5); GRAN % 89.1 % (42.2-75.2); HEMATOCRIT 39.4 % (37.0-47.0); HEMOGLOBIN 12.4 g/dl (12.5-16.0); LYMPH # 0.6 K/mm3 (1.2-3.4); LYMPH % 3.5 % (20.0-51.0); MEAN CELL VOLUME 96 fl (80.0-100.0); MEAN CORPUSCULAR HEMOGLOBIN 30 pg (27-31); MEAN CORPUSCULAR HGB CONC 32 g/dl (33.0-37.0); MEAN PLATELET VOLUME 10.6 fl (7.4-10.4); MONO # 1.1 K/mm3 (0.1-0.6); MONO % 6.6 % (1.7-9.3); PLATELET COUNT 305 K/mm3 (130-400); RED BLOOD COUNT 4.12 M/mm3 (4.10-5.30); REDCELL DISTRIBUTION WIDTH-CV 15.1 % (11.5-14.5)
[2021-09-28 00:18] LABS: ALBUMIN 3.3 gm/dL (3.4-4.8); BILIRUBIN,TOTAL 0.4 mg/dL (0.2-1.2); CREATININE, serum 0.97 mg/dL (0.57-1.11); MAGNESIUM 1.6 mg/dL (1.6-2.6); POTASSIUM 4.1 mmol/L (3.5-4.5); TOTAL PROTEIN 7.2 gm/dL (6.2-8.1)
[2021-09-28 00:28] LABS: TROPONIN-I 0.038 ng/mL (0.00-0.033)
[2021-09-28 01:39] LABS: COLLECTION METHOD CLEAN CATCH
[2021-09-28] MEDS ORDERED: CORDARONE200 MG/TAB PO (01:45)
[2021-09-28 01:49] LABS: MUCOUS Present (NOT PRESENT); PH 6 (5-8); URINE APPEARANCE Hazy (CLEAR/HAZY); URINE BACTERIA Rare /hpf (NONE SEEN); URINE BILIRUBIN Negative (NEGATIVE); URINE BLOOD 2+ (NEGATIVE); URINE COLOR Yellow (YELLOW); URINE GLUCOSE Negative (NEGATIVE); URINE KETONE Negative (NEGATIVE); URINE LEUKOCYTE ESTERASE 1+ (NEGATIVE); URINE NITRATE Negative (NEGATIVE); URINE PROTEIN(semi-quant) 2+ (NEGATIVE); URINE UROBILINOGEN Negative (NEGATIVE)
[2021-09-28] MEDS ORDERED: HCTZ12.5TAB PO (02:10)
--- NOTE | 2021-09-28 02:38 | NUR ---
PT ARRIVES VIA CART TO ROOM 327.
[2021-09-28 03:05] VITALS: BP 108/66; PULSE 81; TEMP 98
--- NOTE | 2021-09-28 03:20 | NUR ---
PLACED PUREWIK, PT TO RECEIVE LASIX. HAS INT TO RAC, FLUSHES WELL. IS ALERT AND ORIENTED X4. ORIENTED TO BED CONTROLS. HAS EDEMA TO BILATERAL LOWER LEGS. WAS ABLE TO HELP PULL HERSELF UP IN BED. NO SKIN ISSUES NOTED.
--- NOTE | 2021-09-28 03:25 | NUR ---
REPORTED TROPONIN TO JOSEMANUEL RIVERA
[2021-09-28 04:46] VITALS: BP 97/45
--- NOTE | 2021-09-28 05:00 | NUR ---
B/P REMAINS TOO LOW FOR [employer] DRIVER AWARE. PT HAS NOT VOIDED SINCE ARRIVAL TO UNIT. DOES NOT APPEAR IN ANY RESPIRATORY DISTRESS.
--- NOTE | 2021-09-28 06:00 | NUR ---
RESPIRATORY VIRUS PANEL NEGATIVE.
[2021-09-28 08:00] VITALS: BP 120/73; PULSE 73; TEMP 98.1
--- NOTE | 2021-09-28 10:00 | NUR ---
DR.SMAIRAT WEST. DAUGHTER AT BEDSIDE. SEE NEW ORDERS. PLAN IS FOR HEART CATH ON THURSDAY
--- NOTE | 2021-09-28 11:10 | NUR ---
PATIENT STARTED ON HEP GTT PER VERBAL ORDERS FROM WHO IS AWARE OF AM ELIQUIS DOSE. PHARMACY CALLED AND VISITED WITH NURSING & CARDIOLOGY ABOUT HEP DOSING, NO BOLUS, AND CHANGING THE LAB FROM HEPXA TO PTT DUE TO ELIQUIS. SEE NEW ORDERS. DAUGHTER AT BEDSIDE ASKING LOTS OF GOOD QUESTIONS. DAUGHTER CONCERNED ABOUT PATIENT'S "LABBORED BREATHING & WHEEZING". SHE THEN SAID, YOU MAY NOT BE ABLE TO SEE IT BUT IM USED TO HER AND THIS IS DIFFERENT FROM HER BASELINE. NURSING DID NOT NOTE A WHEEZE. IV LASIX WAS INITIATED. GRETEL INPLACE.
[2021-09-28 12:00] VITALS: BP 111/69; PULSE 101; TEMP 98.1
--- NOTE | 2021-09-28 12:15 | NUR ---
DR.POELL WEST, DAUGHTER AT BEDSIDE AND FAMILY ALL ON ZOOM. SEE NEW ORDERS. PATIENT'S DAUGHTER REPORTS SHE FEELS HER MOTHER IS A LITTLE ANXIOUS. GAVE PRN XANAX. PATIENT RESTING UP IN BED TALKING WITH FAMILY.
--- NOTE | 2021-09-28 13:09 | NUR ---
Site Medical Director offered prayer and support with patient while family was in room.
[2021-09-28 16:00] VITALS: BP 97/52; PULSE 101; TEMP 97.8
--- NOTE | 2021-09-28 16:00 | NUR ---
REPORTED OFF TO CLAUDIA RUIZ.
--- NOTE | 2021-09-28 17:13 | NUR ---
FOCUSED ASSESSMENT COMPLETED. EDUCATED PT AND DAUGHTER TO BEST OF ABILITIES. DISUSSED WITH AMELIE JEAN LOW BLOOD PRESSURE AND NEED FOR NITRO PASTE. RECEIVED VERBAL ORDERS TO REMOVE PATCH AND REST OF NITROPASTE D/T LOW BP. PT DENIES CHEST PAIN AT THIS TIME, EDUCATED IF PAIN RETURNS TO CALL RN. LUNGS CLEAR TO AUSCULTATION. S1,S2 SOUNDS HEARD. PT PULSES 2+ IN ALL EXTREMITIES, CAP REFILL <3S. PT HAS 1+ EDEMA IN UPPER AND LOWER EXTREMITIES BILATERALLY. CALL LIGHT WITHIN REACH.
--- NOTE | 2021-09-28 18:12 | NUR ---
PTT LEVEL WITHIN GOAL RANGE, NO CHANGE NEEDED. NEXT LAB DRAW AT 2245.
--- NOTE | 2021-09-28 18:16 | NUR ---
PT CONTINUES ON PLAN OF CARE. DAUGHTER IN LAW PRESENT AT BEDSIDE. NO SIGNIFICANT CHAGES NOTED FROM 1600-END OF SHIFT. CONTINUES ON HEP GTT, MOST RECENT LAB WITHIN THERAPEUTIC RANGE. PT ABLE TO EXPRESS NEEDS AND CALL LIGHT WITHIN REACH.
[2021-09-28 20:01] VITALS: BP 108/45; PULSE 107; TEMP 98
--- NOTE | 2021-09-28 23:03 | NUR ---
HEPARIN gtt INCREASED BY 1.5 mL/HR. RATE NOW AT 1150 UNITS/HR.
[2021-09-29 00:12] VITALS: BP 132/79; PULSE 87; TEMP 98.1
--- NOTE | 2021-09-29 04:48 | NUR ---
RESTING QUIETLY/SLEEPING. NO N/V. NO c/o CHEST PAIN. AFEBRILE.
[2021-09-29 05:41] VITALS: BP 130/63; PULSE 90; TEMP 97.7
[2021-09-29 06:31] LABS: HEMATOCRIT 37.5 % (37.0-47.0); HEMOGLOBIN 11.5 g/dl (12.5-16.0); MEAN CELL VOLUME 98 fl (80.0-100.0); MEAN CORPUSCULAR HEMOGLOBIN 30 pg (27-31); MEAN CORPUSCULAR HGB CONC 31 g/dl (33.0-37.0); MEAN PLATELET VOLUME 10.8 fl (7.4-10.4); PLATELET COUNT 254 K/mm3 (130-400); RED BLOOD COUNT 3.83 M/mm3 (4.10-5.30); REDCELL DISTRIBUTION WIDTH-CV 15.1 % (11.5-14.5)
[2021-09-29 06:48] LABS: CALCIUM 8.9 mg/dL (8.4-10.2); CREATININE, serum 1.08 mg/dL (0.57-1.11); MAGNESIUM 1.8 mg/dL (1.6-2.6); POTASSIUM 3.4 mmol/L (3.5-4.5)
[2021-09-29 07:01] LABS: TROPONIN-I 0.139 ng/mL (0.00-0.033)
[2021-09-29 07:35] VITALS: BP 113/64; PULSE 62; TEMP 97.5
[2021-09-29 07:47] LABS: LYMPHOCYTE 3 % (20.0-51.0); NEUTROPHILS 92 % (42.0-75.2); TOXIC GRANULATION PRESENT
[2021-09-29 07:48] LABS: ANISOCYTOSIS 1+; HYPOCHROMIA 3+; PLATELET ESTIMATE NORMAL (NORMAL)
--- NOTE | 2021-09-29 08:00 | NUR ---
PATIENT IS A&O. VSS ON TELE. DENIES PAIN, N/V OR SOA. PATIENT ALSO REPORTS HER BLE EDEMA IS BETTER SINCE GETTING THE LASIX WELL HER BREATHING. NOTED A&P LUNG BASES DEMINISHED, UPPER LOBES CLEAR, NO COUGH, NO WHEEZING. NOTED +[address] HEPARIN GTT INFUSING VIA PUMP INTO RIGHT AC IV. HEAD TO TOE ASSESSMENT COMPLETE. AM MEDS GIVEN. PATIENT ORDERING BREAKFAST TRAY. NO OTHER NEEDS. CALL LIGHT IN REACH.
--- NOTE | 2021-09-29 11:22 | NUR ---
Marie met with pt, daughter present who stated preference to return home once medically stable. The pt lives with her daughter, Maribell, and is DPOA-HC. The pt is independent on all ADLs and does not use any DME. Pt pcp is Carli Martins and gets her medications from [facility]. DC Plan: Home with daughter.
[2021-09-29 12:03] VITALS: BP 117/67; PULSE 65; TEMP 97.5
[2021-09-29 16:15] VITALS: BP 111/65; PULSE 84; TEMP 97.4
--- NOTE | 2021-09-29 17:00 | NUR ---
PATIENT IV SITE NOTED BLOOD UNDER TEGADERM. PATIENT WAS TALKING ON THE PHONE AND HAD HER ARM BENT, IV IN RIGHT AC, IV PUMP ALARMING. IV SITE FLUSHES, NO TENDERNESS OR REDDNESS. CHANGED IV DRESSING AND APPLIED COBAN. RESTARTED HEPARIN GTT. NEXT HEPXA AT 1800. WILL MONITOR.
--- NOTE | 2021-09-29 18:01 | NUR ---
RADIOLOGY AT BEDSIDE TO OBTAIN CXR
[2021-09-29 20:05] VITALS: BP 150/84; PULSE 75; TEMP 98.1
[2021-09-30] VITALS (18 sets, daily range): BP systolic 95–159; BP diastolic 42–110; PULSE 56–90; TEMP 97.3–98
--- NOTE | 2021-09-30 04:23 | NUR ---
RESTING QUIETLY. PT STATED SHE HAD DIARRHEA. SHE DID HAVE A SMALL LOOSE STOOL THOUGH IT WASN'T LIQUID.
[2021-09-30 07:13] LABS: HEMATOCRIT 38.6 % (37.0-47.0); MEAN CELL VOLUME 95 fl (80.0-100.0); MEAN CORPUSCULAR HEMOGLOBIN 30 pg (27-31); MEAN CORPUSCULAR HGB CONC 31 g/dl (33.0-37.0); MEAN PLATELET VOLUME 10.6 fl (7.4-10.4); PLATELET COUNT 281 K/mm3 (130-400); RED BLOOD COUNT 4.05 M/mm3 (4.10-5.30); REDCELL DISTRIBUTION WIDTH-CV 15.2 % (11.5-14.5)
[2021-09-30 07:29] LABS: CALCIUM 8.7 mg/dL (8.4-10.2); CREATININE, serum 0.98 mg/dL (0.57-1.11); MAGNESIUM 1.9 mg/dL (1.6-2.6)
--- NOTE | 2021-09-30 11:36 | NUR ---
Report received from hourly shift nurse. Morning medication pass and full body assessment completed. Vital signs are WNL. Patient is A&Ox4 and is in a pleasant mood. Patient admitted for chest pain and is scheduled for an ECHO and cardiac cath today. Patient is currently NPO but is tolerating oral intake/meds well. Patient denies pain and any other complaints at this time. Daughter at the bedside. Call light within reach.
--- NOTE | 2021-09-30 13:00 | NUR ---
PATIENT GOING DOWN TO DISEASE AND INSECT CONTROL BOSS VIA BED. DAUGHTER AT BEDSIDE.
--- NOTE | 2021-09-30 13:02 | NUR ---
SEE MERGE FOR ALL MEDICATION ADMINISTRATION TIMES/DOSAGES AND INTRA/POST PROCEDURE SEDATION ASSESSMENT.
--- NOTE | 2021-09-30 13:19 | NUR ---
The patient is to have a cardiac cath today. SW asked the PA for PT/OT to be ordered.
--- NOTE | 2021-09-30 14:43 | NUR ---
Patient arrived to the surgical floor from her heart cath at 1420. Postop vital signs have been started. Right radial was utilized and TR band is in place, CD&I. Patient has no complaints of chest pain, SOA, or discomfort. Patient currently watching television in bed, call light within reach. Diet ordered changed from NPO to AHA.
--- NOTE | 2021-09-30 16:30 | NUR ---
RELEASED 3CC OF AIR FROM TR BAND, NO BLEEDING. WILL MONITOR.
--- NOTE | 2021-09-30 17:00 | NUR ---
RELEASED 3CC OF AIR FROM TR BAND. NO BLEEDING NOTED.
--- NOTE | 2021-09-30 17:45 | NUR ---
REMOVED ANOTHER 3CC FROM TR BAND. NO BLEEDING.
--- NOTE | 2021-09-30 18:35 | NUR ---
RELEASED LAST 3CC OF AIR FROM TR BAND. NO BLEEDING OR HEMATOMA. RIGHT RADIAL SITE IS CD&I AND IRAM.
--- NOTE | 2021-09-30 19:45 | NUR ---
Bedside shift report received, assumed care for cook night. Assessment complete. A&Ox4. Denies pain/nausea/shortness of breath. VS remain stable. Right radial heart cath site no drainage/hematoma noted. Tele reporting Afib. INT to right AC flushes without difficulty. Plan of care discussed for this shift to include meds/calling for questions/concerns. Verbalizes understanding/denies needs. Call light in reach. Will monitor.
[2021-10-01] VITALS: BP 131/80; PULSE 63; TEMP 98
[2021-10-01 00:08] VITALS: BP 131/80; PULSE 63; TEMP 98
--- NOTE | 2021-10-01 00:30 | NUR ---
Resting eyes closed. No s/s of pain noted.
[2021-10-01 04:15] VITALS: BP 147/74; PULSE 58; TEMP 97.5
[2021-10-01 04:23] VITALS: BP 147/74; PULSE 58; TEMP 97.5
--- NOTE | 2021-10-01 06:21 | NUR ---
Patient had an uneventful night. Radial heart cath site without drainage/hematoma. Tolerating diet. Denied pain/shortness of breath/nausea. INT to right AC flushes without difficulty. Denies current needs. Call light in reach. Will monitor.
[2021-10-01 07:40] VITALS: BP 131/56; PULSE 68; TEMP 97.2
--- NOTE | 2021-10-01 08:39 | NUR ---
Patient report received. Patient is A&Ox4. Sitting up in bed, eating her morning meal. Vital signs WNL and full body assessment completed. Morning medication adminstration completed. Purewick in place and connected to suction. Patient denies pain and has no other complaints at this time. Call light within reach.
[2021-10-01 09:44] LABS: HEMOGLOBIN 11.3 g/dl (12.5-16.0); MEAN CELL VOLUME 96 fl (80.0-100.0); MEAN CORPUSCULAR HEMOGLOBIN 30 pg (27-31); MEAN CORPUSCULAR HGB CONC 31 g/dl (33.0-37.0); MEAN PLATELET VOLUME 11.1 fl (7.4-10.4); PLATELET COUNT 267 K/mm3 (130-400); RED BLOOD COUNT 3.76 M/mm3 (4.10-5.30); REDCELL DISTRIBUTION WIDTH-CV 15.1 % (11.5-14.5)
[2021-10-01 09:52] LABS: CALCIUM 8.5 mg/dL (8.4-10.2); CREATININE, serum 0.97 mg/dL (0.57-1.11); POTASSIUM 4.3 mmol/L (3.5-4.5)
[2021-10-01] MEDS ORDERED: NITROSTAT0.4 MG/TAB SL (10:16)
[2021-10-01] MEDS ORDERED: LASIX 40MG TABL40 MG PO (10:19)
[2021-10-01] MEDS ORDERED: LIPITOR 40MG TA40 MG PO (10:19)
[2021-10-01] MEDS ORDERED: K-DUR 10 MEQ T10 MEQ PO (10:21)
[2021-10-01] MEDS ORDERED: ASPIRIN 81M81 MG/TA2 PO (10:22)
--- NOTE | 2021-10-01 10:37 | NUR ---
PT is recommending home with family assist. The patient is to discharge back home with her daughter and family today, 10/01. No additional needs at this time.
[2021-10-01 11:55] VITALS: BP 127/66; PULSE 62; TEMP 97.4
--- NOTE | 2021-10-01 13:17 | NUR ---
Patient's IV was removed at 1205. Discussed discharge paperwork and education. Patient expresses understanding. Left the floor via wheelchair with a PCT. Left with all belongings, family transporting patient home. Discharge criteria met.
== END 2021-10-01 13:05 | disposition home or self-care (01) | DRG 871 ==
LOC: COL.ER 23:04 → SURG 09-28 01:20
PROVIDERS: Emergency Medicine; Internal Medicine; Internal Medicine Cardiovascular Disease
PROC: 4A023N7 Measurement of Cardiac Sampling and Pressure, Left Heart, Percutaneous Approach (ICD-10-PCS; principal; 2021-10-01)
PROC: B2111ZZ Fluoroscopy of Multiple Coronary Arteries using Low Osmolar Contrast (ICD-10-PCS; 2021-10-01)
DX: A41.9 Sepsis, unspecified organism (principal); I21.4 Non-ST elevation (NSTEMI) myocardial infarction; Z68.41 Body mass index [BMI] 40.0-44.9, adult; N39.0 Urinary tract infection, site not specified; I25.110 Atherosclerotic heart disease of native coronary artery with unstable angina pectoris; R65.20 Severe sepsis without septic shock; I11.0 Hypertensive heart disease with heart failure; I50.9 Heart failure, unspecified; I27.20 Pulmonary hypertension, unspecified; I48.91 Unspecified atrial fibrillation; Z20.822 Contact with and (suspected) exposure to COVID-19; I08.1 Rheumatic disorders of both mitral and tricuspid valves; E87.6 Hypokalemia; J44.9 Chronic obstructive pulmonary disease, unspecified; K21.9 Gastro-esophageal reflux disease without esophagitis; H40.9 Unspecified glaucoma; E66.01 Morbid (severe) obesity due to excess calories; E78.5 Hyperlipidemia, unspecified; R73.9 Hyperglycemia, unspecified; Z79.01 Long term (current) use of anticoagulants; Z88.0 Allergy status to penicillin; Z88.2 Allergy status to sulfonamides; Z88.5 Allergy status to narcotic agent
CPT/HCPCS: 99223-AI; 99232-AI; 99233-AI; 99239; C1725; C1769; C1887; J0153; J0696; J1644; J1940; J2185; J2250; J2930; J3010; J7512; Q9967

== ENCOUNTER → 2022-09-23 | Outpatient (CLI) | payer MEDICARE, OTHER ==
[~2022-09-23] MED LIST changes: +K-DUR 10 MEQ T10 MEQ PO; +LASIX 40MG TABL40 MG PO; +LIPITOR 40MG TA40 MG PO; +NITROSTAT0.4 MG/TAB SL
== END ==
LOC: MC.RAD 08:53
DX: Z12.31 Encounter for screening mammogram for malignant neoplasm of breast (principal)

== ENCOUNTER 2022-12-25 09:45 | Outpatient (RCR) | payer MEDICARE, OTHER | END 2022-12-28 | disposition home or self-care (01) | LOC: WSPT | DX: M79.651 Pain in right thigh (principal); M54.50 Low back pain, unspecified ==

== ENCOUNTER → 2023-09-29 | Outpatient (CLI) | payer MEDICARE ==
[2005-12-16 09:12] VITALS: BP 169/86; PULSE 98; TEMP 97.5
== END ==
LOC: MC.RAD 13:26
DX: Z12.31 Encounter for screening mammogram for malignant neoplasm of breast (principal)

== ENCOUNTER 2024-06-19 09:10 | Emergency (ER) | payer MEDICARE, OTHER ==
[~2024-06-19] VITALS: Ht 149.9 cm; Wt 80.0 kg
[2024-06-19 09:16] VITALS: BP 129/70
[2024-06-19] MEDS ORDERED: DOXYCYCLINE 10100 MG PO (10:41)
[2024-06-19] MEDS ORDERED: TESSALON PERLE200 MG PO (10:41)
[2024-06-19] MEDS ORDERED: PREDNISONE20 MG PO (10:43)
[2024-06-19 11:05] VITALS: PULSE 61; TEMP 98.1
== END 2024-06-19 11:12 | disposition home or self-care (01) ==
LOC: COL.ER 09:10
DX: J44.1 Chronic obstructive pulmonary disease with (acute) exacerbation (principal); J01.90 Acute sinusitis, unspecified; I48.91 Unspecified atrial fibrillation; Z79.01 Long term (current) use of anticoagulants; Z20.822 Contact with and (suspected) exposure to COVID-19